=== PATIENT | female | born 1940 | race Caucasian/White ===

== ENCOUNTER 2023-01-16 08:03 | Outpatient (CLI) | payer MEDICARE, BC ==
[2023-01-16 08:53] LABS: #Basophils 0.1 thou/uL (0.0-0.2); #Eosinphils 0.2 thou/uL (0.0-0.7); #Lymphocytes 2.9 thou/uL (1.20-3.40); #Monocytes 0.6 thou/uL (0.11-0.59); #Neutrophils 5.5 thou/uL (1.40-6.50); %Basophils 1.2 % (0.0-1.0); %Eosinophils 1.7 % (0.0-10.0); %Lymphocytes 31.5 % (21.0-51.0); %Monocytes 6.1 % (0.0-10.0); %Neutrophils 59.5 % (42.0-75.0); Hematocrit 39.8 % (36.0-47.0); Hemoglobin 13.4 g/dL (12.0-16.0); Mean Corpuscular HGB CONC 33.6 g/dL (32.0-36.0); Mean Corpuscular Hemoglobin 31.4 pg (27.0-31.0); Mean Corpuscular Volume 93.6 fl (78.0-98.0); Mean Platelet Volume 8.3 fL (7.4-10.4); Platelet Count 319 10x3/uL (130-400); Red Blood Cell (RBC) Count 4.25 mill/uL (4.20-5.40); White Blood Cell (WBC) Count 9.2 10x3/uL (4.8-10.8)
[2023-01-16 09:11] LABS: ALT (SGPT) 11 U/L (8-55); AST (SGOT) 15 U/L (5-34); Albumin 4.3 g/dL (3.4-4.8); Alkaline Phosphatase 75 U/L (40-110); Anion Gap 17 mmol/L (10-20); BUN (Urea Nitrogen) 8 mg/dL (9.8-20.1); Bilirubin, Total 0.5 mg/dL (0.2-1.2); Calc. Creatinine Clearance 0 mL/min (70-130); Calcium 10.2 mg/dL (7.8-10.44); Carbon Dioxide 21 mmol/L (23-31); Chloride 105 mmol/L (98-107); Estimated GFR 67; Globulin 3.4 g/dL (2.4-3.5); Glucose 102 mg/dL (83-110); Potassium 3.2 mmol/L (3.5-5.1); Protein, Total 7.7 g/dL (5.8-8.1); Sodium 140 mmol/L (136-145)
== END 2023-01-16 08:04 | disposition home or self-care (01) ==
LOC: MADRAD 08:03
PROVIDERS: ATTEND Internal Medicine
DX: I35.9 Nonrheumatic aortic valve disorder, unspecified (principal); I10 Essential (primary) hypertension
CPT/HCPCS: 36415; 71046; 80053; 85025

== ENCOUNTER 2023-03-20 20:04 | Emergency (ER) | payer MEDICARE, BC ==
[~2023-03-20 20:04] MED LIST: Iopamidol 370 76% 100 ML VIAL ONE
[2023-03-20 20:56] LABS: #Basophils 0.1 thou/uL (0.0-0.2); #Lymphocytes 2.6 thou/uL (1.20-3.40); #Neutrophils 9.2 thou/uL (1.40-6.50); %Basophils 0.9 % (0.0-1.0); %Eosinophils 0.2 % (0.0-10.0); %Monocytes 7.7 % (0.0-10.0); %Neutrophils 71.3 % (42.0-75.0); Hematocrit 38.3 % (36.0-47.0); Hemoglobin 12.7 g/dL (12.0-16.0); Mean Corpuscular HGB CONC 33.1 g/dL (32.0-36.0); Mean Corpuscular Hemoglobin 30.1 pg (27.0-31.0); Mean Platelet Volume 6.8 fL (7.4-10.4); Platelet Count 333 10x3/uL (130-400); RBC Distribution Width 11.5 % (11.5-14.5); Red Blood Cell (RBC) Count 4.21 mill/uL (4.20-5.40); White Blood Cell (WBC) Count 12.9 10x3/uL (4.8-10.8)
[2023-03-20 21:10] LABS: ALT (SGPT) 12 U/L (8-55); AST (SGOT) 18 U/L (5-34); Alkaline Phosphatase 82 U/L (40-110); Anion Gap 22 mmol/L (10-20); BUN (Urea Nitrogen) 23 mg/dL (9.8-20.1); Bilirubin, Total 0.6 mg/dL (0.2-1.2); Calc. Creatinine Clearance 0 mL/min (70-130); Carbon Dioxide 20 mmol/L (23-31); Chloride 96 mmol/L (98-107); Estimated GFR 55; Globulin 4.4 g/dL (2.4-3.5); Glucose 107 mg/dL (83-110); Potassium 3.8 mmol/L (3.5-5.1); Protein, Total 8.4 g/dL (5.8-8.1); Sodium 134 mmol/L (136-145); Troponin I Less than 0.010 ng/mL (< 0.028)
[2023-03-20 21:18] LABS: Bilirubin Small (Negative); Blood, Urine Small (Negative); Glucose, Urine (Dipstick) Negative (Negative); Ketone, Urine Trace mg/dL (Negative); Leukocyte Moderate (Negative); Nitrite Positive (Negative); Protein, Urine (Dipstick) 100 mg/dL (Neg-Trace); Specific Gravity, Urine 1.025 (1.005-1.030); pH, Urine 5.5 (5.0-9.0)
[2023-03-20 21:21] LABS: Bacteria/HPF 4+ HPF (None Seen); CAUTI Indications for Culture Dysuria,urgency,freq; Clarity Turbid (Clear); RBC/HPF 0-3 HPF (0-3); WBC/HPF Greater than 50 HPF (0-3)
[2023-03-20 21:23] LABS: Urine Culture Reflex Yes Yes
[2023-03-20] MEDS ORDERED: Sodium Chloride 0.9% 100 ML ONE (21:44)
[2023-03-20] MEDS ORDERED: cefTRIAXone (ROCEPHIN) 2 GM VIAL ONE (21:44)
[2023-03-20] MEDS ORDERED: Sodium Chloride 0.9% 1,000 ML ONE (22:01)
[2023-03-20] MEDS ORDERED: Esmolol 2,500 MG/250 ML 250 ML ONE (23:32)
[2023-03-21] MEDS ORDERED: Esmolol 2,500 MG/250 ML 250 ML ONE (01:10)
== END 2023-03-21 01:33 | disposition short-term general hospital (02) ==
LOC: MADERS 20:04
DX: I71.8 Aortic aneurysm of unspecified site, ruptured (principal); N39.0 Urinary tract infection, site not specified; I10 Essential (primary) hypertension; E21.3 Hyperparathyroidism, unspecified; Z79.899 Other long term (current) drug therapy
CPT/HCPCS: 51702; 71045; 71260; 80053; 81001; 83605; 83880; 84443; 84484; 85025; 87040; 87077; 87081; 87086; 87186; 87430; 93005; 96365; 96366; 96367; J0696; J7050; Q9967

== ENCOUNTER 2023-03-28 15:25 | Emergency (ER) | payer MEDICARE, BC ==
[2023-03-28 16:08] LABS: #Lymphocytes 0.7 thou/uL (1.20-3.40); #Monocytes 0.6 thou/uL (0.11-0.59); %Basophils 0.5 % (0.0-1.0); %Lymphocytes 6.9 % (21.0-51.0); %Monocytes 6.5 % (0.0-10.0); %Neutrophils 86.1 % (42.0-75.0); Hematocrit 33.8 % (36.0-47.0); Hemoglobin 11.1 g/dL (12.0-16.0); Mean Corpuscular HGB CONC 32.6 g/dL (32.0-36.0); Mean Corpuscular Hemoglobin 30.4 pg (27.0-31.0); Mean Corpuscular Volume 93.2 fl (78.0-98.0); Mean Platelet Volume 6.7 fL (7.4-10.4); Platelet Count 361 10x3/uL (130-400); RBC Distribution Width 12.8 % (11.5-14.5); Red Blood Cell (RBC) Count 3.63 mill/uL (4.20-5.40); White Blood Cell (WBC) Count 9.3 10x3/uL (4.8-10.8)
[2023-03-28 16:24] LABS: ALT (SGPT) 47 U/L (8-55); AST (SGOT) 39 U/L (5-34); Albumin 3.5 g/dL (3.4-4.8); Alkaline Phosphatase 83 U/L (40-110); Anion Gap 18 mmol/L (10-20); BUN (Urea Nitrogen) 16 mg/dL (9.8-20.1); Bilirubin, Total 0.5 mg/dL (0.2-1.2); Calc. Creatinine Clearance 0 mL/min (70-130); Calcium 10.1 mg/dL (7.8-10.44); Carbon Dioxide 24 mmol/L (23-31); Chloride 95 mmol/L (98-107); Estimated GFR 87; Globulin 4.4 g/dL (2.4-3.5); Glucose 141 mg/dL (83-110); Lipase 20 U/L (8-78); Potassium 4.4 mmol/L (3.5-5.1); Protein, Total 7.9 g/dL (5.8-8.1); Sodium 133 mmol/L (136-145)
[2023-03-28] MEDS ORDERED: Aspirin 325 MG TAB ONE (17:34)
== END 2023-03-28 19:45 | disposition home or self-care (01) ==
LOC: MADERS 15:25
DX: S27.892A Contusion of other specified intrathoracic organs, initial encounter (principal); Q25.49 Other congenital malformations of aorta; I10 Essential (primary) hypertension; R11.2 Nausea with vomiting, unspecified; X58.XXXA Exposure to other specified factors, initial encounter
CPT/HCPCS: 36415; 71275; 80053; 83690; 83735; 85025; 85379; 93005; Q9967